=== PATIENT | male | born 1970 | race Caucasian/White ===

== ENCOUNTER 2021-08-11 17:17 | Emergency (ER) | payer OTHER, SELFPAY ==
--- NOTE | ~2021-08-11 | CT_ITS ---
EXAMINATION: CT facial bones w con DATE: 08/11/2021 20:02 INDICATION: Upper limb swelling TECHNIQUE: Computed tomography (CT) of the facial bones and maxillofacial region was performed with 7 5 cc of Omnipaque 350 intravenous contrast. The dose-length product (DLP) was 641.15 mGy-cm. Automate d exposure control and iterative reconstruction technique were employed. COMPARISON: None. FINDINGS: There is marked swelling of the upper lip and right premaxillary soft tissues. No soft tiss ue abscess is identified. There is a periapical abscess of the left upper central incisor with disrup tion of the anterior cortex of the adjacent mandible overlying the tooth root. IMPRESSION: 1. Periapical abscess of the left upper central incisor with disruption of the anterior cortex of the adjacent mandible and cellulitis of the upper lip and right premaxillary soft tissues. Reviewed, dictated and finalized at location F. [facility] IMPRESSION: 1. Periapical abscess of the left upper central incisor with disruption of the anterior cortex of the adjacent mandible and cellulitis of the upper lip and ri ght premaxillary soft tissues.
[2021-08-11 17:22] VITALS: BP 151/87; PULSE 122; RESP 18; O2SAT 94
[2021-08-11 19:21] LABS: Basophils Percent Auto 0.4 % (0.2-1.2); Eosinophils Percent Auto 0.4 % (0-4.4); Hemoglobin 15.8 g/dL (14.0-18.0); Immature Granulocyte Absolute 0.03 K/mm3 (0.00-0.031); Immature Granulocyte Percent A 0.3 % (0-0.5); Lymphocytes Absolute Auto 1.24 K/mm3 (0.9-3.2); Lymphocytes Percent Auto 12.2 % (18.3-44.2); Mean Corpuscular HGB Conc 33.6 g/dl (32-36); Mean Corpuscular Hemoglobin 28.4 pg (26-34); Mean Corpuscular Volume 84.5 fl (80-100); Mean Platelet Volume 9.9 fl (7.4-10.4); Monocytes Absolute Auto 1.1 K/mm3 (0.1-0.6); Neutrophils Absolute Auto 7.7 K/mm3 (1.3-6.7); Neutrophils Percent Auto 75.7 % (45.5-73.1); Platelet Count Result 207 k/mm3 (150-375); Red Blood Count 5.56 M/mm3 (4.6-6.20); Red Cell Distribution Width 13.2 % (11.5-14.5); White Blood Count 10.2 K/mm3 (4.5-10.0)
[2021-08-11 19:32] LABS: Anion Gap 11 mmol/L (8-16); Blood Urea Nitrogen 11 mg/dL (9-20); Calcium 9.1 mg/dL (8.4-10.2); Carbon Dioxide 29 mmol/L (22-30); Chloride 94 mmol/L (98-107); Estimated CRCL calculation 111 ml/min; Estimated Glomerular Filt Rate > 60; Glucose 135 mg/dL (65-110); Potassium 3.8 mmol/L (3.4-5.0); Sodium 134 mmol/L (137-145)
--- NOTE | 2021-08-11 20:32 | ED.DENTAL ---
HPI - Dental/Oral General Chief complaint: Dental/Oral Stated complaint: possible allergic reaction Time Seen by Provider: 08/11/21 18:42 Source: patient and family Mode of arrival: ambulatory Limitations: no limitations History of Present Illness HPI Narrative: 51-year-old with a history of back surgery here with complaints of right facial swelling since this morning. states that he has been on 2 rounds of antibiotic and finished the last course of antibiotic yesterday which is clindamycin. He states he has been taking Percocet which was prescribed for his back. MD Complaint: tooth pain Onset (ago): day(s) (1) Duration: constant Severity: moderate Relieving factors: nothing Exacerbating factors: nothing Context: history of dental caries Associated symptoms: gum swelling Treatment prior to arrival: none Related Data Allergies Allergy/AdvReac Type Severity Reaction Status Date / Time No Known Allergies Allergy Verified 04/14/21 08:56 Review of Systems Review of Systems: All systems reviewed & are unremarkable except as noted in HPI and below Constitutional: Constitutional: Reports no additional constitutional complaints Eyes: Eyes: Reports no additional eye complaints ENT: Reports as per HPI Cardiovascular: Cardiovascular: Reports no additional cardiovascular complaints Respiratory: Respiratory: Reports no additional respiratory complaints Gastrointestinal: Gastrointestinal: Reports no additional gastrointestinal complaints Musculoskeletal: Musculoskeletal: Reports no additional musculoskeletal complaints Integumentary/Breasts: Skin/Breast: Reports system reviewed and no additional complaints, except as docu Exam Narrative: GENERAL: Well-appearing, well-nourished, and in no acute distress.sleeping HEAD: Normocephalic, atraumatic. EYES: PERRLA and EOMI. ENT: Nares clear, no rhinorrhea or epistaxis. Mucous membranes moist. Dental caries , mild sts on the right maxillary area NECK: Supple. CHEST: Clear to auscultation. No respiratory distress. HEART: Regular rate and rhythm. No murmur heard. EXTREMITIES: Normal range of motion. No edema. SKIN: Warm, dry, no rash. NEURO: No focal deficits. Alert and oriented x3. PSYCH: Normal mood and affect. Course Course Emergency Course: Patient in no distress, heart rate came up couple times to tell him about his lab and CT results. He and his was answering all the questions advised her to follow-up with oromaxillary surgery. Advised her to go to [facility] if she cannot find anybody locally. Continue Percocet. Vital Signs Vital signs: Vital Signs Pulse Rate 122 H 08/11/21 17:22 Respiratory Rate 18 08/11/21 17:22 Blood Pressure 151/87 H 08/11/21 17:22 Pulse Oximetry 94 08/11/21 17:22 Pulse Rate 122 H 08/11/21 17:22 Respiratory Rate 18 08/11/21 17:22 Blood Pressure 151/87 H 08/11/21 17:22 Pulse Oximetry 94 08/11/21 17:22 MDM - Dental/Oral Lab Data Result diagrams: 08/11/21 19:16 08/11/21 19:16 Labs: Lab Results 08/11/21 08/11/21 Range/Units 19:16 19:16 WBC 10.2 H (4.5-10.0) K/mm3 RBC 5.56 (4.6-6.20) M/mm3 Hgb 15.8 (14.0-18.0) g/dL Hct 47.0 (42.0-52.0) % MCV 84.5 (80-100) fl MCH 28.4 (26-34) pg MCHC 33.6 (32-36) g/dl RDW 13.2 (11.5-14.5) % Plt Count 207 (150-375) k/mm3 MPV 9.9 (7.4-10.4) fl Immature Gran % (Auto) 0.3 (0-0.5) % Neut % (Auto) 75.7 H (45.5-73.1) % Lymph % (Auto) 12.2 L (18.3-44.2) % [place] % (Auto) 11.0 H (2.6-8.5) % Eos % (Auto) 0.4 (0-4.4) % Baso % (Auto) 0.4 (0.2-1.2) % Lymph # (Auto) 1.24 (0.9-3.2) K/mm3 [place] # (Auto) 1.1 H (0.1-0.6) K/mm3 Eos # (Auto) 0.0 (0-0.3) K/mm3 Baso # (Auto) 0.0 (0.0-0.1) K/mm3 Abs Immat Gran (auto) 0.03 (0.00-0.031) K/mm3 Absolute Neuts (auto) 7.7 H (1.3-6.7) K/mm3 Absolute Nucleated RBC 0.0 (0.0-0.012) K/mm3 Nucleated RBC % 0.0 (0.0-0.2) %
[2021-08-11 21:01] VITALS: BP 134/82; PULSE 106; RESP 18; O2SAT 94
== END 2021-08-11 21:03 | disposition home or self-care (01) ==
PROVIDERS: Emergency Provider Family Medicine; PCP Internal Medicine
DX: K04.7 Periapical abscess without sinus (principal)
CPT/HCPCS: 36415; 70487; 80048; 85025; 99284; Q9967

== ENCOUNTER 2022-01-19 22:09 | Observation (INO) | payer OTHER, SELFPAY ==
--- NOTE | ~2022-01-19 | MR_ITS ---
EXAMINATION: MR brain/brain stem wo/w con DATE: 01/20/2022 11:20 INDICATION: Confusion. Difficulty ambulating. TECHNIQUE: Magnetic resonance imaging (MRI) of the brain and brainstem was performed without and with 20 mL MultiHance intravenous contrast. COMPARISON: Head CT 01/19/2022 FINDINGS: There is no intracranial hemorrhage, acute infarction, or abnormal intracranial mass lesion . The ventricles are normal in size. There is mild mucosal thickening in the paranasal sinuses. The o rbits are normal. There is a small right mastoid effusion. IMPRESSION: 1. Normal brain. Reviewed, dictated and finalized at location A. IMPRESSION: 1. Normal brain.
--- NOTE | ~2022-01-19 | XR_ITS ---
EXAMINATION: XR chest 1V portable DATE: 01/20/2022 00:20 INDICATION: Hypoxia. TECHNIQUE: A single frontal view of the chest was obtained. COMPARISON: Chest 2 views 09/18/2012, CT abdomen and pelvis 01/19/2022 FINDINGS: The chest demonstrates clear lungs without pneumonia, pleural effusion, or pneumothorax. Th e heart size is normal. There are changes of anterior fusion procedure in cervical spine. IMPRESSION: 1. No acute cardiopulmonary disease. Reviewed, dictated and finalized at location A.
--- NOTE | ~2022-01-19 | CT_ITS ---
EXAMINATION: CT brain wo con DATE: 01/19/2022 22:55 INDICATION: headache, AMS . TECHNIQUE: Computed tomography (CT) of the head was performed without intravenous contrast. The mA wa s adjusted according to patient size. Iterative reconstruction technique was employed. The dose-lengt h product was 605.33 mGy-cm. COMPARISON: None FINDINGS: No acute intracranial hemorrhage or extra-axial fluid collection. No hydrocephalus, mass, or herniation. No acute ischemic infarct. Unremarkable dural venous sinus attenuation. No acute osseous abnormality. Bilateral maxillary mucosal thickening and air-fluid levels, otherwise the aerated spaces are clear. IMPRESSION: No acute intracranial process. Maxillary sinus findings may represent acute sinusitis in the appropri ate clinical context. Reviewed, dictated and finalized at location K. IMPRESSION: No acute intracranial process. Maxillary sinus findings may represent acute sin usitis in the appropriate clinical context.
--- NOTE | ~2022-01-19 | CT_ITS ---
EXAMINATION: CT abdomen pelvis wo con DATE: 01/19/2022 22:55 INDICATION: RLQ pain TECHNIQUE: Computed tomography (CT) of the abdomen and pelvis was performed without intravenous contr ast. Automated exposure control and iterative reconstruction technique were employed. The dose-length product was 1714.51 mGy-cm. COMPARISON: None FINDINGS: Lower thorax: Right middle lobe granuloma or hamartoma. Liver: Normal. Biliary/Gallbladder: Gallbladder is normal. No bile duct dilation. Pancreas: No mass or duct dilation. Spleen: Normal. Adrenals:No mass. Kidneys: Punctate bilateral nonobstructive renal calculi. No mass or hydronephrosis. GI tract: No small or large bowel dilation. Normal appendix. Mesentery/Peritoneum: No ascites, mass, or free air. Retroperitoneum: No mass. Pelvis: Pelvic organs are within normal limits. Soft Tissues: Soft tissues and body wall unremarkable. Bones: No acute osseous finding. L5-S1 posterior fusion. IMPRESSION: No acute abdominal pelvic process. Reviewed, dictated and finalized at location K.
[2022-01-19 22:16] VITALS: BP 124/66; PULSE 66; RESP 17; TEMP 36.2; O2SAT 96
[2022-01-19 22:22] VITALS: PULSE 58
[2022-01-19 22:32] LABS: Basophils Percent Auto 0.6 % (0.2-1.2); Eosinophils Absolute Auto 0.3 K/mm3 (0-0.3); Eosinophils Percent Auto 3.8 % (0-4.4); Hematocrit 42.3 % (42.0-52.0); Hemoglobin 13.8 g/dL (14.0-18.0); Immature Granulocyte Absolute 0.04 K/mm3 (0.00-0.031); Immature Granulocyte Percent A 0.6 % (0-0.5); Lymphocytes Absolute Auto 2.99 K/mm3 (0.9-3.2); Lymphocytes Percent Auto 42.2 % (18.3-44.2); Mean Corpuscular HGB Conc 32.6 g/dl (32-36); Mean Corpuscular Hemoglobin 29.5 pg (26-34); Mean Corpuscular Volume 90.4 fl (80-100); Mean Platelet Volume 10.8 fl (7.4-10.4); Monocytes Absolute Auto 0.8 K/mm3 (0.1-0.6); Monocytes Percent Auto 10.7 % (2.6-8.5); Neutrophils Percent Auto 42.1 % (45.5-73.1); Platelet Count Result 223 k/mm3 (150-375); Red Blood Count 4.68 M/mm3 (4.6-6.20); Red Cell Distribution Width 12.8 % (11.5-14.5); White Blood Count 7.1 K/mm3 (4.5-10.0)
[2022-01-19] MEDS: LACTATED RINGERS 1,000 ML 999 ML IV CONT (22:32)
[2022-01-19 22:44] LABS: Alanine Aminotransferase 69 U/L (6-50); Albumin Level 3.5 g/dL (3.5-5.1); Alkaline Phosphatase 42 U/L (38-126); Anion Gap 4 mmol/L (8-16); Aspartate Amino Transferase 40 U/L (17-59); Bilirubin,Total 0.6 mg/dL (0.2-1.3); Blood Urea Nitrogen 13 mg/dL (9-20); Calcium 8.2 mg/dL (8.4-10.2); Carbon Dioxide 30 mmol/L (22-30); Chloride 106 mmol/L (98-107); Estimated CRCL calculation 125 ml/min; Estimated Glomerular Filt Rate > 60; Glucose 159 mg/dL (65-110); Lipase 45 U/L (23-300); Potassium 3.2 mmol/L (3.4-5.0); Sodium 140 mmol/L (137-145)
[2022-01-19 22:49] LABS: Partial Thromboplastin Time 22.9 SECONDS (22.3-36.8); Prothrombin Time 13.1 Seconds (11.1-14.7)
--- NOTE | 2022-01-19 22:51 | ED.WEAKNESS ---
HPI - Weakness General Chief complaint: Weakness Stated complaint: weakness and disorientation, laying in bed all day Time Seen by Provider: 01/19/22 22:11 History of Present Illness HPI Narrative: 51-year-old male presents here with altered mental status, he seems to be more forgetful than usual, states that he has a headache and some pain in his right lower quadrant, when EMS arrived he was hypoxic. Denies any fevers or chills, cough, no history of any liver disease. He states that he always has tingling in his feet and hands after multiple spine surgeries, otherwise no focal numbness or weakness. His family states he has been out working on his car the last two days and has been getting more and more tired. Per family, he could not even get out of bed or stand or walk today. Related Data Allergies Allergy/AdvReac Type Severity Reaction Status Date / Time No Known Allergies Allergy Verified 04/14/21 08:56 Review of Systems Review of Systems: CONST: No fever. HEENT: No sore throat C/V: No chest pain RESP: No cough GI: Reports abdominal pain : Right scrotal pain M/S: No joint pain. SKIN: No rash. NEURO: Headache PSYCH: [No depression] [facility] Past Medical History Medical History Tobacco chew use Surgical History Surgical History (Updated 01/19/22 @ 22:55 by Ana Maria Melendez MD) H/O cervical spine surgery Social History Social History (Updated 01/19/22 @ 22:55 by Ana Maria Melendez MD) Smokeless tobacco user: chewing tobacco Exam Narrative: EXAMINATION OF ORGAN SYSTEMS/BODY AREAS: Constitutional: Vital signs per nursing GENERAL:Resting comfortably in bed HEAD: Normal with no signs of head trauma. EYES: EOMI, conjunctiva normal, eyes generally closed but open to verbal stimulus ENT: Hearing grossly intact LUNGS: Nonlabored breathing, clear to auscultation bilaterally. HEART: [Regular rate and rhythm ABD: [Soft], tender to palpation in the right lower quadrant EXT: Normal range of motion SKIN: [No rashes or lesions.] NEURO: [Sleepy and oriented x 2; forgot I was in the room earlier. No gross focal sensory or strength deficits.] Slight slurred speech. PSYCH: Normal affect Course Vital Signs Vital signs: Vital Signs Temperature 97.2 F L 01/19/22 22:16 Pulse Rate 66 01/19/22 22:16 Respiratory Rate 17 01/19/22 22:16 Blood Pressure 124/66 01/19/22 22:16 Pulse Oximetry 96 01/19/22 22:16 Oxygen Delivery Nasal Cannula 01/19/22 22:16 Oxygen Flow Rate 4 01/19/22 22:16 Temperature 97.2 F L 01/19/22 22:16 Pulse Rate 59 L 01/20/22 01:15 Respiratory Rate 16 01/20/22 01:15 Blood Pressure 124/64 01/20/22 01:15 Pulse Oximetry 96 01/20/22 01:15 Oxygen Delivery Nasal Cannula 01/19/22 22:16 Oxygen Flow Rate 4 01/19/22 22:16 MDM - Weakness MDM Narrative Medical decision making narrative: 51-year-old male presents with generalized weakness and confusion that is been worsening over the last 2 to 3 days, vital signs notable for hypoxia when he arrived, on exam he does appear slightly confused and per family at bedside speech is not normal, does have slight tenderness to the right lower quadrant. Differential includes fatigue or infection, ingestion or intoxication, posterior CVA. Labs within acceptable limits other than cannabis on UDS, on reevaluation patient is stating that he has vertigo when he sits up, is still feeling like he cannot walk, and speech persistently slurred, given this I did discuss with neurology patient may benefit from MRI. He is not a tPA candidate as symptoms have been ongoing for more than 2 days. Discussed with hospitalist for admission. Lab Data Result diagrams: 01/19/22 22:24 01/19/22 22:24 Labs: Lab Results 01/19/22 01/19/22 01/19/22 Range/Units 22:24 22:24 22:24 WBC 7.1 (4.5-10.0) K/mm3 RBC 4.68 (4.6-6.20) M/mm3 Hgb 13.8 L (14.0-18.0) g/dL Hct 42.3 (42.0-52.0) % MCV 90.4 (80-100
[2022-01-19 23:18] LABS: SARS-CoV-2 RNA PCR Negative
[2022-01-19 23:29] LABS: Ammonia < 9 umol/L (9-30); Ethanol < 10 mg/dL (<10)
[2022-01-20] VITALS (7 sets, daily range): BP systolic 124–156; BP diastolic 64–90; PULSE 57–70; RESP 14–18; TEMP 36.8–37.3; O2SAT 95–99; BMI 42.2
--- NOTE | 2022-01-20 | ECHO_ITS ---
Patient Info Name: Franco Jiménez Age: 51 years : 1970 Gender: Male Ht: 71 in Wt: 302 lbs BSA: 2.68 m2 HR: 58 bpm BP: 142 / 70 mmHg Heart Rhythm: Sinus Rhythm, Bradycardia Technical Quality: Poor Exam Date: 01/20/2022 3:05 PM Exam Location: [facility] Patient Status: Inpatient Admit Date: 01/20/2022 Staff Ordering Physician: Zeus Lyons MD Resident Associate: Delia Everett RDCS Attending Provider: Lela Mixon DO Exam Type: CA echo doppler color flow Study Info Indications - TIA Complete two-dimensional, color flow and Doppler transthoracic echocardiogram is performed with contrast to opacify the left ventricle and to improve the deliniation of the left ventricle endocardial borders. Contrast/Agitated Saline Contrast/Ag. Saline: Definity Amount: 6.00 ml Administered By: Delia Everett RDCS Existing IV Access: Yes IV Access Condition: patent with no signs of infiltration Reason for Poor Study: patient body habitus Summary 1. Ventricular enlargement with normal wall thickness. Moderate global hypokinesis with an estimated ejection fraction of 40-45%. No segmental wall motion abnormalities. Global longitudinal strain was mildly diminished at -16% consistent with systolic dysfunction. 2. No significant valve disease. 3. Left atrial chamber dimension is mildly enlarged. 4. No pulmonary hypertension, estimated pulmonary arterial systolic pressure is 20 mmHg. 5. Sinus bradycardia. Left Ventricle Left ventricular chamber dimension is mildly enlarged. Left ventricular systolic function is moderately reduced, estimated at 40-45%. There is no increased left ventricular wall thickness. Left ventricular septal wall motion is normal. The left ventricular diastolic function is normal. Global longitudinal strain is mildly elevated at -16 %. Right Ventricle Right ventricular chamber dimension is normal. Right ventricular systolic function is normal. Left Atria Left atrial chamber dimension is mildly enlarged. Right Atria Right atrial chamber dimension is normal. Aortic Valve The aortic valve is trileaflet. There is no aortic valve sclerosis. There is no aortic valve stenosis. There is no aortic valve regurgitation. Pulmonic Valve The pulmonic valve is normal. There is no pulmonic valve stenosis. There is trace pulmonic regurgitation. Mitral Valve The mitral valve has normal leaflets. There is no mitral valve stenosis. There is no mitral valve regurgitation. Tricuspid Valve The tricuspid valve leaflets are normal. There is no significant tricuspid valve stenosis. There is no tricuspid valve regurgitation. No pulmonary hypertension, estimated pulmonary arterial systolic pressure is 20 mmHg. Pericardium/Pleural The pericardium appears normal. There is no pericardial effusion. Inferior Vena Cava Dilated inferior vena cava with >50% collapse upon inspiration consistent with Empty right atrial pressure, 10 mmHg. Aorta The aortic root size at the sinus of Valsalva is normal. The prox ascending aorta size is normal. Left Ventricular Outflow Tract Name Value Normal LVOT 2D LVOT Diameter
[2022-01-20] MEDS: POTASSIUM CHLORIDE 20 MEQ PACKET (FOR LIQUID) 40 MEQ PO (00:23)
[2022-01-20 00:31] LABS: Appearance Urine Clear (Clear); Bilirubin Urine Negative (Negative); Blood Urine Negative (Negative); Color Urine Yellow (Yellow); Glucose Urine UA Negative (Negative); Ketones Urine Negative (Negative); Leukocyte Esterase Ur Negative LEU/UL (Negative); Nitrate Urine Negative (Negative); Protein Urine Negative (Negative); Specific Grav Ur >= 1.030 (1.001-1.035); Urobilinogen Urine 0.2 mg/dL (<2.0); pH Urine 5.5 (5.0-9.0)
[2022-01-20 00:37] LABS: Mucus Urine Rare /lpf; RBC Urine 0-2 /hpf (0-2); WBC Urine 0-3 /hpf
[2022-01-20 00:38] LABS: Add Urine Microscopic? NO
[2022-01-20 00:49] LABS: Amphetamine Screen Urine Negative (Negative); Barbiturate Screen Urine Negative (Negative); Benzodiazepines Screen Urine Negative (Negative); Cannabinoid Screen Urine Positive (Negative); Cocaine Screen Urine Negative (Negative); Methadone Screen Urine Negative (Negative); Opiate Screen Urine Negative (Negative); Phencyclidine Screen Urine Negative (Negative)
--- NOTE | 2022-01-20 01:11 | ECG_ITS ---
Measurements Intervals [place] Rate: 59 P: 56 [place]: 148 QRS: 47 QRSD: 103 T: 57 QT: 417 QTc: 414 Interpretive Statements SINUS BRADYCARDIA NO PREVIOUS ECG AVAILABLE FOR COMPARISON Electronically Signed On 01-20-2022 20:32:11 CDT by Melody Castillo M.D.
--- NOTE | 2022-01-20 03:07 | ADMGEN ---
This patient, Franco Jiménez , was admitted to 3 [facility] Surg Room 317-01. Patient/family oriented to hospital policies and general routines including ID bracelet, bed and alarms, visiting hours, pain management, procedures, bathroom and other care routines, personal items, smoking policy, room service/diet, and visiting hours. Information on how to activate the Rapid Response Team has been discussed. Patient/Family are encouraged to report perceived risks to care and to ask questions if they do not understand what they are told or what they should do.
[2022-01-20 09:05] LABS: Hematocrit 42.6 % (42.0-52.0); Hemoglobin 13.9 g/dL (14.0-18.0); Mean Corpuscular HGB Conc 32.6 g/dl (32-36); Mean Corpuscular Hemoglobin 29.8 pg (26-34); Mean Corpuscular Volume 91.4 fl (80-100); Mean Platelet Volume 10.5 fl (7.4-10.4); Platelet Count Result 212 k/mm3 (150-375); Red Blood Count 4.66 M/mm3 (4.6-6.20); Red Cell Distribution Width 13.1 % (11.5-14.5); White Blood Count 8.9 K/mm3 (4.5-10.0)
[2022-01-20 09:18] LABS: Alanine Aminotransferase 70 U/L (6-50); Albumin Level 3.9 g/dL (3.5-5.1); Alkaline Phosphatase 52 U/L (38-126); Anion Gap 6 mmol/L (8-16); Aspartate Amino Transferase 35 U/L (17-59); Bilirubin,Total 0.2 mg/dL (0.2-1.3); Blood Urea Nitrogen 13 mg/dL (9-20); Calcium 8.8 mg/dL (8.4-10.2); Carbon Dioxide 27 mmol/L (22-30); Chloride 106 mmol/L (98-107); Estimated CRCL calculation 112 ml/min; Estimated Glomerular Filt Rate > 60; Glucose 143 mg/dL (65-110); Magnesium 1.8 mg/dL (1.6-2.3); Potassium 3.7 mmol/L (3.4-5.0); Sodium 139 mmol/L (137-145)
--- NOTE | 2022-01-20 12:20 | WPDNEURCNPN ---
Assessment and Plan Assessment and plan (1) Seizure disorder: Code(s): G40.909 - Epilepsy, unspecified, not intractable, without status epilepticus Status: Acute Plan change in the mental status at the time of presentation though the initial CT scan was negative MRI of the brain was warranted to rule out the possibility of space-occupying lesion and that study is normal to so as the routine lab patient can be observed for 24 hours in the meantime EEG can be obtained to rule out the possibility of seizure Additional Plan EEG Consult date: 01/20/22 Time Seen: 10:45 Reason for consult: 51 years old right-handed male admitted to [facility] through the emergency room where he was brought with the complaints of generalized weakness with disorientation and somewhat more forgetful than usual along with the headache and pain in his right lower abdominal quadrant when EMS arrived at the scene he was ruled noted [place] hypoxic was complaining of tingling sensation in hands and feet, has undergone multiple spine surgeries, was not allergic to any medication reportedly, history of chewing tobacco, history of cervical spine surgery, initial examination compatible with his sleepiness but without gross motor or sensory deficit, initial evaluation with normal vital signs, slurring of the speech, normal routine lab except blood sugar of 143 and urine positive for cannabinoids SARS-CoV-[address] scan of the head normal, abdominal and pelvic CT scan negative, stat x-ray negative and today MRI of the brain also normal, has been taking citalopram 20 mg daily clonidine 0.1 mg gabapentin 600 mg 3 times a day trazodone 50 mg at night and Augmentin 875/125 q.12 hours HPI: Franco Jiménez is a 51 year old male Review of Systems Review of Systems: All systems reviewed & are unremarkable except as noted in HPI and below PMFSH Past Medical History Medical History Tobacco chew use Surgical History Surgical History (Updated 01/19/22 @ 22:55 by Ana Maria Melendez MD) H/O cervical spine surgery Family History Family History (Updated 01/20/22 @ 03:44 by Leesa Castorena RN) Other Unknown family medical history Social History Social History (Updated 01/19/22 @ 22:55 by Ana Maria Melendez MD) Smokeless tobacco user: snuff Alcohol intake: current Other substance usage details: 12 drinks a year Spiritual care concerns: No Meds Home Medications and Allergies Home Medications Medication Instructions Recorded Confirmed Type cetirizine 10 mg capsule (Zyrtec) 10 mg PO DAILY 01/20/22 01/20/22 History citalopram 20 mg tablet 20 mg PO DAILY 01/20/22 01/20/22 History clonidine HCl 0.1 mg tablet 0.1 mg PO DAILY 01/20/22 01/20/22 History gabapentin 300 mg capsule 600 cap PO TID 01/20/22 01/20/22 History montelukast 10 mg tablet 10 mg PO HS 01/20/22 01/20/22 History (Singulair) telmisartan 40 1 tablet PO DAILY 01/20/22 01/20/22 History mg-hydrochlorothiazide 12.5 mg tablet trazodone 50 mg tablet 50 mg PO HS 01/20/22 01/20/22 History triamcinolone acetonide 0.1 % 1 applic topical DAILY PRN rash 01/20/22 01/20/22 History topical cream Allergies Allergy/AdvReac Type Severity Reaction Status Date / Time No Known Allergies Allergy Verified 04/14/21 08:56 Vital Signs Vital Signs - 24 hr 01/19/22 22:16 01/19/22 22:22 01/20/22 01:15 Temperature 36.2 C L Pulse Rate 66 58 L 59 L Respiratory Rate 17 16 Blood Pressure 124/66 124/64 Pulse Oximetry 96 96 Oxygen Delivery Nasal Cannula Oxygen Flow Rate 4 01/20/22 03:16 01/20/22 06:00 01/20/22 09:06 Temperature 37.3 C Pulse Rate 64 70 Respiratory Rate 14 18 Blood Pressure 135/75 142/70 H Pulse Oximetry 95 97 95 Oxygen Delivery Nasal Cannula Oxygen Flow Rate 3 Exam Narrative: awake alert cooperative in no obvious acute distress, head normocephalic with no cranial bruit, ear nose throat examination normal, nec
[2022-01-20] MEDS: GABAPENTIN 300 MG CAPSULE 600 MG PO ×2 (12:30→21:31)
[2022-01-20] MEDS: hydroCHLOROthiazide 12.5 MG CAPSULE PO (12:30)
[2022-01-20] MEDS: TELMISARTAN 40 MG TABLET PO (12:30)
[2022-01-20] MEDS: ASPIRIN 81 MG ENTERIC TABLET PO (12:30)
[2022-01-20] MEDS: LORATADINE 10 MG TABLET PO (12:30)
[2022-01-20] MEDS: TRIAMCINOLONE ACET 0.1% CREAM 15 GM TUBE 1 APPLIC TOPICAL (12:31)
[2022-01-20] MEDS: PERFLUTREN LIPID MICROSPHERES 1.5 ML VIAL DILUTED TO 10 ML TOTAL VOLUME IV PUSH (15:30)
--- NOTE | 2022-01-20 15:31 | IVDEFINITY ---
Prior to administration of IV Definity the patient was educated on the risks and benefits of the imaging enhancing agent including potential adverse side effects. The patient verbalized understanding. Allergies were verified. No exclusion criteria were identified and at least one of the following inclusion criteria were met: 1) physician request, 2) patient technically difficult to image (per the [place] [employer]ocardi[employer] guidelines of two or more segments not discernable within the apical view), or 3) questionable left ventricular function. ?
--- NOTE | 2022-01-20 18:46 | PM.IMHP ---
H&P: HPI History of Present Illness Date/Time: 01/20/22 18:46 Chief Complaint: fatigue confusion Narrative: ED-HPI Narrative: 51-year-old male presents here with altered mental status, he seems to be more forgetful than usual, states that he has a headache and some pain in his right lower quadrant, when EMS arrived he was hypoxic.? Denies any fevers or chills, cough, no history of any liver disease.? He states that he always has tingling in his feet and hands after multiple spine surgeries, otherwise no focal numbness or weakness. His family states he has been out working on his car the last two days and has been getting more and more tired. Per family, he could not even get out of bed or stand or walk today. his symptoms have improved denies any complaint chest pain and headache, also confusion has resolved, patient MRI of the brain did not show any acute injury, to further evaluate patient had a cardiac echo it showed ejection fraction of 40-45% patient was seen by Cardiology does not suspect any acute cardiac injury does not recommend any workup at present time however patient will benefit to have outpatient stress test, patient remains clinically stable will discharge the patient. patient admitted as observation status Review of Systems Constitutional: Constitutional: Reports body ache(s) PMFSH Past Medical History Medical History Tobacco chew use Surgical History Surgical History (Updated 01/19/22 @ 22:55 by Ana Maria Melendez MD) H/O cervical spine surgery Family History Family History (Updated 01/20/22 @ 03:44 by Leesa Castorena RN) Other Unknown family medical history Social History Social History (Updated 01/19/22 @ 22:55 by Ana Maria Melendez MD) Smokeless tobacco user: snuff Alcohol intake: current Other substance usage details: 12 drinks a year Spiritual care concerns: No Meds Home Medications and Allergies Home Medications Medication Instructions Recorded Confirmed Type albuterol sulfate 90 mcg/actuation 2 puff inhalation QID PRN Dyspnea 01/20/22 01/20/22 History aerosol inhaler alprazolam 0.25 mg tablet 1 tablet PO TID PRN Anxiety 01/20/22 01/20/22 History cetirizine 10 mg capsule (Zyrtec) 10 mg PO DAILY 01/20/22 01/20/22 History citalopram 20 mg tablet 20 mg PO DAILY 01/20/22 01/20/22 History clonidine HCl 0.1 mg tablet 0.1 mg PO Q12H 01/20/22 01/20/22 History gabapentin 300 mg capsule 600 cap PO TID 01/20/22 01/20/22 History montelukast 10 mg tablet 10 mg PO HS 01/20/22 01/20/22 History (Singulair) telmisartan 40 1 tablet PO DAILY 01/20/22 01/20/22 History mg-hydrochlorothiazide 12.5 mg tablet trazodone 50 mg tablet 50 mg PO HS 01/20/22 01/20/22 History triamcinolone acetonide 0.1 % 1 applic topical DAILY PRN rash 01/20/22 01/20/22 History topical cream aspirin 81 mg tablet,delayed 81 mg PO QAM #30 tabs 01/21/22 Rx release atorvastatin 40 mg tablet 40 mg PO HS #30 tabs 01/21/22 Rx Allergies Allergy/AdvReac Type Severity Reaction Status Date / Time No Known Allergies Allergy Verified 04/14/21 08:56 Vital Signs Vital Signs - 24 hr 01/19/22 22:16 01/19/22 22:22 01/20/22 01:15 Temperature 97.2 F L Pulse Rate 66 58 L 59 L Respiratory Rate 17 16 Blood Pressure 124/66 124/64 Pulse Oximetry 96 96 Oxygen Delivery Nasal Cannula Oxygen Flow Rate 4 01/20/22 03:16 01/20/22 06:00 01/20/22 09:06 Temperature 99.1 F Pulse Rate 64 70 Respiratory Rate 14 18 Blood Pressure 135/75 142/70 H Pulse Oximetry 95 97 95 Oxygen Delivery Nasal Cannula Oxygen Flow Rate 3 01/20/22 15:45 Temperature 98.3 F Pulse Rate 57 L Respiratory Rate 16 Blood Pressure 156/90 H Pulse Oximetry 99 Oxygen Delivery Oxygen Flow Rate Exam Narrative: morbidly obese Patient is comfortable, NAD HEENT: eyes are clear and none icteric LUNGS: normal respiratory effort ABD: distended Lower extremities: no edema SKIN: nonjaundiced Neur
[2022-01-20] MEDS: ATORVASTATIN 40 MG TABLET PO (21:29)
[2022-01-20] MEDS: MONTELUKAST SODIUM 10 MG TABLET PO (21:30)
[2022-01-20] MEDS: traZODone HCL 50 MG TABLET PO (21:30)
[2022-01-21 05:03] VITALS: BP 142/81; PULSE 59; RESP 16; TEMP 36.1; O2SAT 96
[2022-01-21 08:00] VITALS: PULSE 59; RESP 16; O2SAT 96
[2022-01-21] MEDS: ASPIRIN 81 MG ENTERIC TABLET PO (08:24)
[2022-01-21] MEDS: CITALOPRAM HYDROBROMIDE 20 MG TABLET PO (08:24)
[2022-01-21] MEDS: cloNIDine HCL 0.1 MG TABLET PO (08:24)
[2022-01-21] MEDS: TELMISARTAN 40 MG TABLET PO (08:24)
[2022-01-21] MEDS: hydroCHLOROthiazide 12.5 MG CAPSULE PO (08:25)
[2022-01-21] MEDS: LORATADINE 10 MG TABLET PO (08:25)
--- NOTE | 2022-01-21 09:30 | PM.CNCAR ---
Assessment and Plan Assessment and plan (1) Left ventricular dysfunction: Code(s): I51.9 - Heart disease, unspecified Status: Acute Plan 51-year-old gentleman admitted to the hospital yesterday with symptoms primarily of headache and confusion. This appears to have resolved. There was no specific diagnosis from what I can see on the chart. CT and MRI do not show any evidence of a CVA or a space-occupying lesion in the brain. Patient's 12 lead ECG is normal. Echocardiogram presumably was done because of concerns regarding his mental status does not show any findings that would indicate a likely cardioembolic source. His left ventricular ejection fraction is mildly reduced according to these findings and that has prompted consultation today. Given his hypertension he should be screened for evidence of coronary disease. A stress test should be performed at some point this does not have to keep him in the hospital. He would like to be discharged and I think that is fine I will arrange for a stress echocardiogram appointment in my office after which I will see him follow-up. Erick Ortega MD [facility] History of Present Illness History of Present Illness Consult date/time: 01/21/22 09:30 Reason For Visit: slurred speech, vertigo Narrative: This is a 51-year-old man I am seeing this morning at the request of the hospitalist because of abnormalities noted on echocardiogram that was done yesterday. He is not known to have any cardiac problems prior to this admission. He came to the hospital yesterday by ambulance from his home for evaluation of variety of symptoms. The patient tells me today that he summoned his for help he was in his bedroom and states that he felt disoriented and confused. He is very nonspecific about what he means by that he was aware that he was in his bedroom he was able to call out to his for help. He states that he had a severe headache at that time there are notes in the chart that he was having some right lower quadrant abdominal pain at that time as well he does not recall that at this time. He states that 911 was called and when he MS arrived his room he was unable to recognize who was in the bedroom. He was having severe headache as mentioned above on route to the emergency room his headache started to improve. He was evaluated in the emergency room and admitted to the hospital for further evaluation apparently at the time of admission it was concerned that he might have been having a stroke. Altogether he states these symptoms were occurring for about 2 hours. He does not generally experience any side other symptomatology and denies having any symptoms of chest pain pressure or heaviness he did he does not exert to any significant degree because he states he has a lot of chronic back problems and knee problems because of previous occupational injuries. He has had a couple of different back surgeries as well. Presumably because of the concern about CVA an echocardiogram was done. The echocardiogram demonstrated mildly reduced left ventricular systolic function with an ejection fraction of 40-45% and that is what prompted asking me to see him today in consultation. His 12 lead electrocardiogram is normal. He does carry the diagnosis of longstanding hypertension he is a patient of Dr. Erick Starks and is currently being treated with telmisartan and and clonidine. He states his blood pressure has generally been under good control. The patient states this morning he is expecting to be discharged but is discharge is pending my approval. Review of Systems Constitutional: Constitutional: Reports body ache(s) Eyes: Eyes: Reports no additional eye complaints ENT: Reports system reviewed and no additional complaints, except as documented Cardiovascular: Cardiovascular: Reports no additional cardiovascular complaints Respiratory: Respiratory: Reports no additional respiratory complaints Gastroint
--- NOTE | 2022-01-21 10:49 | PM.DS ---
DS: Admitting Diagnosis Discharge Date 01/21/2022 Admitting Diagnosis fatigue and confusion DS: Discharge Diagnosis Discharge Diagnosis (1) Left ventricular dysfunction: Code(s): I51.9 - Heart disease, unspecified Status: Acute Assessment and Plan: ED-[facility] Narrative: 51-year-old male presents here with altered mental status, he seems to be more forgetful than usual, states that he has a headache and some pain in his right lower quadrant, when EMS arrived he was hypoxic.? Denies any fevers or chills, cough, no history of any liver disease.? He states that he always has tingling in his feet and hands after multiple spine surgeries, otherwise no focal numbness or weakness. His family states he has been out working on his car the last two days and has been getting more and more tired. Per family, he could not even get out of bed or stand or walk today. his symptoms have improved denies any complaint chest pain and headache, also confusion has resolved, patient MRI of the brain did not show any acute injury, to further evaluate patient had a cardiac echo it showed ejection fraction of 40-45% patient was seen by Cardiology does not suspect any acute cardiac injury does not recommend any workup at present time however patient will benefit to have outpatient stress test, patient remains clinically stable will discharge the patient. (2) Fatigue: Code(s): R53.83 - Other fatigue Status: Acute Assessment and Plan: patient's symptoms have improved clinically stable. DS: Summary Hospital Course Reason for hospitalization: 51-year-old male presents here with altered mental status, he seems to be more forgetful than usual, states that he has a headache and some pain in his right lower quadrant, when EMS arrived he was hypoxic.? Denies any fevers or chills, cough, no history of any liver disease.? He states that he always has tingling in his feet and hands after multiple spine surgeries, otherwise no focal numbness or weakness. His family states he has been out working on his car the last two days and has been getting more and more tired. Per family, he could not even get out of bed or stand or walk today. ?his symptoms have improved denies any complaint chest pain and headache,? also confusion has resolved, patient MRI of the brain did not show any acute injury, to further evaluate patient had a cardiac echo it showed ejection fraction of 40-45% patient was seen by Cardiology does not suspect any acute cardiac injury does not recommend any workup at present time however patient will benefit to have outpatient stress test, patient remains clinically stable will discharge the patient. Hospital Course: ?his symptoms have improved denies any complaint chest pain and headache,? also confusion has resolved, patient MRI of the brain did not show any acute injury, to further evaluate patient had a cardiac echo it showed ejection fraction of 40-45% patient was seen by Cardiology does not suspect any acute cardiac injury does not recommend any workup at present time however patient will benefit to have outpatient stress test, patient remains clinically stable will discharge the patient. Time Spent with Patient Time attestation: Total time spent providing and/or coordinating discharge services: Exam Narrative: morbidly obese Patient is comfortable, NAD HEENT: eyes are clear and none icteric LUNGS: normal respiratory effort ABD: distended Lower extremities: no edema SKIN: nonjaundiced Neuro: grossly intact. Discharge Plan Discharge Attending physician on discharge: Zeus Lyons Consulting providers: Elan Cruz ; Erick Ortega ; Zeus Lyons ; Melody Castillo ; Vladimir Mensah ; Steven Polanco V. Discharging Clinician: Zeus Lyons Patient Disposition: Home, Self-Care Activity: as tolerated Diet: heart healthy Discharge Instructions: patient to follow discharge care instruction from his Elda
--- NOTE | 2022-01-21 12:27 | PCCCNOTE ---
On 01/21/22, the student, [Milagros Baires], provided care and completed [facility] documentation on this patient. I have reviewed the student's documentation and agree with the findings.
--- NOTE | 2022-01-24 09:42 | WPDNEUROLOGY ---
Neurology EEG Report General Information Date of Study: 01/20/22 TEST eeg DIAGNOSIS possible seizures CONDITION OF RECORDING awake EEG NUMBER [id number] CLINICAL HISTORY patient came into hospital yesterday for altered mental status and weakness. Reports he was started on a different blood pressure medication 2 days ago. EEG DESCRIPTION basic resting occipital frequency consists of poorly organized low voltage beta activity admixed with low-voltage poorly organized 9 to 11 hertz per 2nd alpha activity bilateral symmetrical sleep activity seen during periods of sleep. hyperventilation not done. Photic stimulation not done. Non paroxysmal. Nonfocal. Nonlateralizing. IMPRESSION No significant abnormalities noted
== END 2022-01-21 11:35 | disposition home or self-care (01) ==
LOC: ANHED 01-20 02:10 → ANH3MEDSUR 01-20 02:35
PROVIDERS: Family Medicine; Admitting Provider Internal Medicine; Emergency Provider Emergency Medicine; PCP Internal Medicine; Visit Provider Internal Medicine
DX: I51.9 Heart disease, unspecified (principal); R53.83 Other fatigue; G40.909 Epilepsy, unspecified, not intractable, without status epilepticus; F17.220 Nicotine dependence, chewing tobacco, uncomplicated; Z79.51 Long term (current) use of inhaled steroids; Z20.822 Contact with and (suspected) exposure to COVID-19
CPT/HCPCS: 36415; 70450; 70553; 71045; 74176; 80053; 80307; 81003; 82140; 83690; 83735; 85025; 85027; 85610; 85730; 93005; 95816; 96360; 96361; 96374; 99285; A9270; A9577; C8929; C9803; G0378; J7120; Q9957; U0003; U0005

== ENCOUNTER → 2022-03-28 11:23 | Outpatient (CLI) | payer OTHER, MEDICARE, SELFPAY ==
--- NOTE | ~2022-03-28 | US_ITS ---
US soft tissue groin RT 03/28/2022 11:49 Indication: Right lower quadrant pain Procedure: High-resolution ultrasound of the right lower quadrant and right inguinal locations Comparison: No prior studies for comparison. Findings: There are mildly prominent right inguinal lymph nodes with normal fatty hilum, largest measuring 2.1 cm. No other discrete masses or fluid collections are identified. Impression: 1: Mildly prominent right inguinal lymph nodes, most likely reactive. Reviewed, dictated and finalized at location B. Impression: 1: Mildly prominent right inguinal lymph nodes, most likely reactive.
== END ==
PROVIDERS: PCP Internal Medicine; Visit Provider Surgery
DX: R10.31 Right lower quadrant pain (principal)
CPT/HCPCS: 76882

== ENCOUNTER 2022-09-16 00:57 | Day surgery (SDC) | payer OTHER, MEDICARE, SELFPAY ==
[2022-09-07 13:36] VITALS: BMI 42.1
--- NOTE | 2022-09-15 09:47 | WPDANESEPPF ---
Anes - Initial Pre Proc Eval Procedure: Operation Date: 09/16/22 07:30 Proposed Procedures p Screening Colonoscopy - Sukhdev Phillip MD Date/Time: 09/15/22 09:47 Surgeon: Sukhdev Phillip MD Pre Op Diagnosis: neoplasm screening Patient Data Age: 52 Gender: M Height: 1.83 m Weight: 141 kg Allergies Allergy/AdvReac Type Severity Reaction Status Date / Time No Known Allergies Allergy Verified 09/16/22 06:25 Home Medications Medication Instructions Recorded Confirmed Type albuterol sulfate 90 mcg/actuation 2 puff inhalation QID PRN Dyspnea 01/20/22 09/16/22 History aerosol inhaler alprazolam 0.25 mg tablet 1 tablet PO TID PRN Anxiety 01/20/22 09/16/22 History cetirizine 10 mg capsule (Zyrtec) 10 mg PO DAILY 01/20/22 09/16/22 History citalopram 20 mg tablet 20 mg PO DAILY 01/20/22 09/16/22 History clonidine HCl 0.1 mg tablet 0.1 mg PO Q12H 01/20/22 09/16/22 History gabapentin 300 mg capsule 900 cap PO BID 01/20/22 09/16/22 History montelukast 10 mg tablet 10 mg PO HS 01/20/22 09/16/22 History (Singulair) trazodone 50 mg tablet 50 mg PO HS 01/20/22 09/16/22 History triamcinolone acetonide 0.1 % 1 applic topical DAILY PRN rash 01/20/22 09/16/22 History topical cream aspirin 81 mg tablet,delayed 81 mg PO QAM #30 tabs 01/21/22 09/16/22 Rx release atorvastatin 40 mg tablet 40 mg PO HS #30 tabs 01/21/22 09/16/22 Rx azilsartan medoxomil 40 1 tablet PO DAILY 09/07/22 09/16/22 History mg-chlorthalidone 25 mg tablet (Edarbyclor) Patient hx anesthesia problems: none Family hx anesthesia problems: none Results Review: All pre-operative results and documents have been reviewed as part of the pre-operative evaluation. [facility] Past Medical History Medical History Anxiety Asthma Hyperlipidemia Hypertension Left ventricular dysfunction Psoriasis Seizure disorder Tobacco chew use Surgical History Surgical History (Updated 03/17/22 @ 14:05 by SHAUNA Nath) H/O cervical spine surgery H/O elbow surgery H/O knee surgery H/O microdiscectomy H/O neck surgery H/O wrist surgery H/O: vasectomy History of lumbar fusion History of nasal surgery Status post labral repair of shoulder Family History Family History (Updated 03/17/22 @ 14:06 by SHAUNA Nath) Other Diabetes mellitus Hypertension Unknown family medical history Social History Social History (Updated 03/17/22 @ 14:06 by SHAUNA Nath) Smoking status: Current every day smoker Tobacco type: smokeless tobacco Smokeless tobacco user: chewing tobacco Alcohol intake: current Alcohol use details: occasionally Substance use type: does not use Other substance usage details: 12 drinks a year Living arrangements: with family Spiritual care concerns: No Anes - Eval Final PreProcedure Day of Procedure 09/15/22 09:47 Patient weight: morbidly obese Heart: regular rate and rhythm Lungs: clear to auscultation Airway: Mallampati scale class II Neurological: alert and oriented Last oral intake: >/= 8 hours ASA classification: III Emergent: no Anesthetic plan: proceed Anesthesia type and monitoring: general GIVS and standard monitoring Results Review: All pre-operative results and documents have been reviewed as part of the pre-operative evaluation. Informed Consent: The patient's anesthetic plan and its attendant risks and benefits were discussed with the patient/family/POA. Questions were solicited and answers provided to the satisfaction of the patient/family/POA.
--- NOTE | 2022-09-15 13:11 | PM.HPGS ---
History of Present Illness History of Present Illness Consent: Risks, benefits, and alternatives have been discussed and questions answered. Patient agrees to proceed with procedure. Chief complaint: neoplasm screening Narrative: Franco Jiménze Sr. is a 52 year old male Referred for colon cancer screening. Review of Systems Review of Systems: All systems reviewed & are unremarkable except as noted in HPI and below PMFSH Past Medical History Medical History Anxiety Asthma Hyperlipidemia Hypertension Left ventricular dysfunction Psoriasis Seizure disorder Tobacco chew use Surgical History Surgical History H/O cervical spine surgery H/O elbow surgery H/O knee surgery H/O microdiscectomy H/O neck surgery H/O wrist surgery H/O: vasectomy History of lumbar fusion History of nasal surgery Status post labral repair of shoulder Family History Family History Other Diabetes mellitus Hypertension Unknown family medical history Social History Social History Smoking status: Current every day smoker Tobacco type: smokeless tobacco Smokeless tobacco user: chewing tobacco Alcohol intake: current Alcohol use details: occasionally Substance use type: does not use Other substance usage details: 12 drinks a year Living arrangements: with family Spiritual care concerns: No Meds Home Medications and Allergies Home Medications Medication Instructions Recorded Confirmed Type albuterol sulfate 90 mcg/actuation 2 puff inhalation QID PRN Dyspnea 01/20/22 09/16/22 History aerosol inhaler alprazolam 0.25 mg tablet 1 tablet PO TID PRN Anxiety 01/20/22 09/16/22 History cetirizine 10 mg capsule (Zyrtec) 10 mg PO DAILY 01/20/22 09/16/22 History citalopram 20 mg tablet 20 mg PO DAILY 01/20/22 09/16/22 History clonidine HCl 0.1 mg tablet 0.1 mg PO Q12H 01/20/22 09/16/22 History gabapentin 300 mg capsule 900 cap PO BID 01/20/22 09/16/22 History montelukast 10 mg tablet 10 mg PO HS 01/20/22 09/16/22 History (Singulair) trazodone 50 mg tablet 50 mg PO HS 01/20/22 09/16/22 History triamcinolone acetonide 0.1 % 1 applic topical DAILY PRN rash 01/20/22 09/16/22 History topical cream aspirin 81 mg tablet,delayed 81 mg PO QAM #30 tabs 01/21/22 09/16/22 Rx release atorvastatin 40 mg tablet 40 mg PO HS #30 tabs 01/21/22 09/16/22 Rx azilsartan medoxomil 40 1 tablet PO DAILY 09/07/22 09/16/22 History mg-chlorthalidone 25 mg tablet (Edarbyclor) Allergies Allergy/AdvReac Type Severity Reaction Status Date / Time No Known Allergies Allergy Verified 09/16/22 06:25 Exam Const: General: alert Orientation/consciousness: patient oriented x3 Resp: Auscultation: clear to auscultation bilaterally Cardio: Rhythm: regular rhythm GI: GI Palp: Yes Soft to palpation and No Tenderness to palpation present (GI) Neuro: General: patient oriented x3 Assessment and Plan Assessment and plan (1) Colon cancer screening: Code(s): Z12.11 - Encounter for screening for malignant neoplasm of colon Status: Acute Assessment and Plan: Colonoscopy with possible biopsy or polypectomy or cautery or injection of substances.
[2022-09-16 06:25] VITALS: BP 132/92; PULSE 90; RESP 16; TEMP 35.5; O2SAT 98; BMI 41.2
[2022-09-16] MEDS: LACTATED RINGERS 1,000 ML 150 ML IV CONT (06:38)
[2022-09-16 07:46] VITALS: BP 106/72; PULSE 81; RESP 25; O2SAT 94
[2022-09-16 07:56] VITALS: BP 106/71; PULSE 86; RESP 25; O2SAT 95
[2022-09-16 08:06] VITALS: BP 105/65; PULSE 72; RESP 21; O2SAT 96
== END 2022-09-16 08:19 | disposition home or self-care (01) ==
PROVIDERS: PCP Internal Medicine; Visit Provider Internal Medicine Gastroenterology
PROC: 0DJD8ZZ Inspection of Lower Intestinal Tract, Via Natural or Artificial Opening Endoscopic (ICD-10-PCS; CPT 45378; principal; 2022-09-16 07:30)
DX: Z12.11 Encounter for screening for malignant neoplasm of colon (principal); K62.1 Rectal polyp; I10 Essential (primary) hypertension; E78.5 Hyperlipidemia, unspecified; L40.9 Psoriasis, unspecified; F41.9 Anxiety disorder, unspecified; J45.909 Unspecified asthma, uncomplicated; Z79.51 Long term (current) use of inhaled steroids; Z79.82 Long term (current) use of aspirin; Z98.1 Arthrodesis status; F17.220 Nicotine dependence, chewing tobacco, uncomplicated; E66.01 Morbid (severe) obesity due to excess calories; Z68.41 Body mass index [BMI] 40.0-44.9, adult
CPT/HCPCS: 45380; 88305; J2704; J7120

== ENCOUNTER 2025-04-08 15:34 | Outpatient (CLI) | payer MEDICARE, SELFPAY ==
--- NOTE | ~2025-04-08 | MR_ITS ---
EXAMINATION: MR shoulder RT wo con DATE: 04/08/2025 16:10 INDICATION: Right shoulder pain TECHNIQUE: Magnetic resonance imaging (MRI) of the right shoulder was performed without intravenous contrast. Sequences included axial PD-weighted FS FSE, coronal oblique PD-weighted FS FSE, coronal oblique T2-weighted FS FSE, sagittal PD-weighted FS FSE, and sagittal T1-weighted SE. COMPARISON: None. FINDINGS: Coracoacromial arch: The acromion undersurface is flat in morphology (type I). The coracoacromial ligament is normal. Moderate acromioclavicular osteoarthritis. Rotator cuff: Mild tendinopathy without tear of the supraspinatus and conjoined portion of the supraspinatus and infraspinatus tendons. The more posterior infraspinatus and teres minor tendons are normal. Moderate subscapularis tendinopathy with partial-thickness intrasubstance tear at the cephalad aspect of the lesser tuberosity footplate of the tendon. 2 cm nodule split tear extending 2 cm further medially along the tendon. Normal rotator cuff muscle bulk and signal. Biceps tendon, glenoid labrum and glenohumeral cartilage: Long head of the biceps tendon is normal. There is a small tear at the 10:30- 11:00 position of the posterior superior labrum. Glenohumeral cartilage is normal. Fluid: Disproportionate mild increased fluid in the long head biceps tendon sheath relative to the physiologic amount fluid in the glenohumeral joint space consistent with mild bicipital tenosynovitis. No loose osteochondral bodies. Mild increased fluid signal in the subacromial/subdeltoid bursa consistent with minimal bursitis. Bones: Likely degenerative subarticular edema-like and mild cystlike changes at the lateral head of the clavicle. Otherwise normal marrow signal with no fracture or pathologic marrow replacing process. IMPRESSION: 1. Moderate subscapularis tendinopathy with small partial-thickness intrasubstance tear along the cephalad aspect of the lesser tuberosity footplate which propagates is a longitudinal split tear 2 cm medially. 2. Mild tendinopathy without tear of the supraspinatus and conjoined portion of the supraspinatus and infraspinatus tendons. 3. Small tear at the posterior superior glenoid labrum. 4. Moderate acromioclavicular osteoarthritis with minimal underlying subacromial/subdeltoid bursitis. 5. Mild bicipital tenosynovitis with normal long head biceps tendon. Reviewed, dictated and finalized at location A. IMPRESSION: 1. Moderate subscapularis tendinopathy with small partial-thickness intrasubsta nce tear along the cephalad aspect of the lesser tuberosity footplate which pro pagates is a longitudinal split tear 2 cm medially. 2. Mild tendinopathy without tear of the supraspinatus and conjoined portion of the supraspinatus and infraspinatus tendons. 3. Small tear at the posterior superior glenoid labrum. 4. Moderate acromioclavicular osteoarthritis with minimal underlying subacromia l/subdeltoid bursitis. 5. Mild bicipital tenosynovitis with normal long head biceps tendon.
== END 2025-04-08 15:35 | disposition home or self-care (01) ==
LOC: GOSHIMG 15:35
PROVIDERS: PCP Physician Assistant Surgical; Visit Provider Physician Assistant Surgical
DX: M19.011 Primary osteoarthritis, right shoulder (principal)
CPT/HCPCS: 73221